=== PATIENT | male | born 2000 | race Caucasian/White ===

== ENCOUNTER 2021-10-13 14:58 | Emergency (ER) | payer BC ==
[~2021-10-13] VITALS: Ht 172.7 cm; Wt 65.3 kg
--- NOTE | 2021-10-13 15:00 | NUR ---
started IV with 20 gauge
--- NOTE | 2021-10-13 15:00 | NUR ---
IV started with 20gauge on his right forearm
[2021-10-13] MEDS ORDERED: diphenhydrAMINE 50 MG/1 ML VIAL ONE (15:07)
[2021-10-13] MEDS ORDERED: EPINEPHRINE 1 MG/1 ML AMP ONE (15:08)
--- NOTE | 2021-10-13 15:08 | NUR ---
PT IS IN ROOM # 1B. DR OLGUIN EVALUATED THE PT.
[2021-10-13] MEDS ORDERED: methylPREDNISolone SOD SUCC 125 MG/2 ML VIAL ONE (15:11)
[2021-10-13] MEDS ORDERED: FAMOTIDINE. 20 MG/2 ML VIAL IV ONE ×2 (15:12→15:15)
[2021-10-13] MEDS ORDERED: diphenhydrAMINE 50 MG CAPSULE PO ONE (15:15)
[2021-10-13] MEDS ORDERED: EPINEPHRINE 1 MG/1 ML AMP SQ ONE (15:15)
[2021-10-13] MEDS ORDERED: methylPREDNISolone SOD SUCC 125 MG/2 ML VIAL IV ONE (15:15)
[2021-10-13 15:24] VITALS: BP 151/98
[2021-10-13] MEDS ORDERED: ALBUTEROL SULFATE 2.5 MG/3 ML NEBU ONE ×2 (15:27→17:09)
[2021-10-13] MEDS ORDERED: ALBUTEROL SULFATE 2.5 MG/3 ML NEBU NEB ONE ×2 (15:30→17:15)
--- NOTE | 2021-10-13 17:00 | NUR ---
Pt resting in bed, feeling much better, no complaints, no distress noted.
[2021-10-13] MEDS ORDERED: IPRATROPIUM BROMIDE 0.5 MG/2.5 ML NEBU ONE (17:09)
[2021-10-13] MEDS ORDERED: IPRATROPIUM BROMIDE 0.5 MG/2.5 ML NEBU NEB ONE (17:15)
[2021-10-13] MEDS ORDERED: EPIN0.3P3 IM (17:50)
[2021-10-13] MEDS ORDERED: PRED20TA PO (17:50)
[2021-10-13] MEDS ORDERED: ALBU18HF2 INH (17:50)
--- NOTE | 2021-10-13 18:09 | NUR ---
Removed IV intact, site okay, bandaged. Gave pt RX and d/c instructions, pt verbalized understanding.
== END 2021-10-13 18:25 | disposition home or self-care (01) ==
LOC: ER 15:00
DX: T78.00XA Anaphylactic reaction due to unspecified food, initial encounter (principal); Z91.010 Allergy to peanuts; Z91.013 Allergy to seafood; J45.909 Unspecified asthma, uncomplicated
CPT/HCPCS: 99291; 96374; 96375; 96372; 94640 ×2; J1200; J0171; J3490; J2930; A4663; J3590